=== PATIENT | female | born 1995 | race African-American/Black ===

== ENCOUNTER 2024-01-21 11:45 | Inpatient (IN) | payer BC ==
[2024-01-21 13:47] VITALS: BMI 20.7
[2024-01-21] MEDS ORDERED: POLYETHYLENE GLYCOL (HEALTHYLAX) 3350 17 GM PACKET PO PRN (14:48)
[2024-01-21] MEDS ORDERED: guaiFENesin 600 MG TABLET.ER (FP) PO PRN (14:48)
[2024-01-21] MEDS ORDERED: MAGNESIUM HYDROX 2400MG/30ML ORAL SUSPENSION 30 ML CUP PO PRN (14:48)
[2024-01-21] MEDS ORDERED: LOPERAMIDE HCL 2 MG CAPSULE PO PRN (14:48)
[2024-01-21] MEDS ORDERED: NALOXONE HCL 0.4 MG/ML VIAL IM PRN (14:48)
[2024-01-21] MEDS ORDERED: NALOXONE HCL (KLOXXADO) 8 MG SPRAY NS PRN (14:48)
[2024-01-21] MEDS ORDERED: BENZONATATE 200 MG CAPSULE PO PRN (14:48)
[2024-01-21] MEDS: hydrOXYzine PAMOATE 25 MG CAPSULE (FP) PO PRN (16:06)
[2024-01-21] MEDS ORDERED: hydrOXYzine PAMOATE 25 MG CAPSULE (FP) PO ONE (16:09)
[2024-01-21] MEDS: TUBERCULIN PPD 5 TU/0.1ML SYRINGE (IN PATIENT USE ONLY) ID ONE (20:00)
[2024-01-21] MEDS: MELATONIN 5 MG TABLETS PO SCH (22:47)
[2024-01-21] MEDS: THIAMINE HCL 100 MG TABLET (FP) PO SCH (22:47)
[2024-01-22] MEDS: PRENATAL VITAMINS W/ FOLIC ACID TABLET (FP) PO SCH (10:13)
[2024-01-22 12:51] LABS: HEMATOCRIT 36.3 % (32.4-45.2); HEMOGLOBIN 11.8 GM/dL (10.7-15.3); MCH 29.2 pg (25.7-33.7); MCHC 32.6 g/dl (32.0-36.0); MEAN CELL VOLUME 89.7 fl (80-96); MEAN PLT VOLUME 9.3 fl (7.5-11.1); PLATELET COUNT 188 10^3/uL (134-434); RBC 4.05 M/mm3 (3.60-5.2); RDW 13.4 % (11.6-15.6); WHITE BLOOD COUNT 4.1 K/mm3 (4.0-10.0)
[2024-01-22 13:03] LABS: POTASSIUM 4.3 mmol/L (3.5-5.1)
[2024-01-22 13:11] LABS: CALCIUM 8.7 mg/dL (8.5-10.1)
[2024-01-22 13:12] LABS: ALBUMIN 3.1 g/dl (3.4-5.0); BLOOD UREA NITROGEN 15.4 mg/dL (7-18)
[2024-01-22 13:15] LABS: CREATININE 0.6 mg/dL (0.55-1.3)
[2024-01-22 13:16] LABS: BILIRUBIN,TOTAL 0.4 mg/dL (0.2-1); TOT PROT 6.2 g/dl (6.4-8.2)
[2024-01-22 13:30] LABS: SYPHILIS W/ RPR CONF NON-REACTIVE (NONREACTIVE)
[2024-01-22] MEDS: NICOTINE POLACRILEX 2 MG LOZENGE BC PRN (13:59)
[2024-01-22] MEDS: NALTREXONE HCL 50 MG TABLET PO SCH (17:36)
[2024-01-22] MEDS: BENZTROPINE MESYLATE 1 MG TABLET PO SCH (17:36)
[2024-01-22] MEDS: NICOTINE POLACRILEX 4 MG GUM BUC PRN (17:39)
[2024-01-23] MEDS: NICOTINE POLACRILEX 4 MG LOZENGE BC PRN (14:54)
[2024-01-23] MEDS: IBUPROFEN 600 MG TABLET (FP) PO PRN (21:18)
[2024-01-24] MEDS: ACETAMINOPHEN 325 MG TABLET (FP) PO PRN (17:13)
[2024-01-24] MEDS: IBUPROFEN 400 MG TABLET (FP) PO PRN (21:10)
[2024-01-24 22:03] LABS: EPI CELLS 0 /uL (0-25.1); HYALINE CASTS 0 /uL (0-3.1); PH,URINE 5.5 (5.0-8.0); URINE APPEARANCE CLEAR; URINE BACTERIA 6 /uL (0-1359); URINE BILIRUBIN NEGATIVE (NEGATIVE); URINE COLOR YELLOW; URINE GLUCOSE (UA) NEGATIVE (NEGATIVE); URINE KETONE NEGATIVE (NEGATIVE); URINE LEUK ESTERASE NEGATIVE (NEGATIVE); URINE NITRITE NEGATIVE (NEGATIVE); URINE PROTEIN NEGATIVE (NEGATIVE); URINE RBC 642 /uL (0-23.9); URINE UROBILINOGEN 0.2 mg/dL (0.2-1.0); URINE WBC 4 /uL (0-25.8)
[2024-01-25] MEDS: NICOTINE POLACRILEX 2 MG GUM BUC PRN (09:55)
[2024-01-26] MEDS: ALBUTEROL SO4 HFA INHALER IH PRN (09:54)
[2024-01-27] MEDS: PALIPERIDONE PALMITATE 156 MG/ML IM SCH (12:14)
[2024-01-28] MEDS: BENZOCAINE/MENTHOL (CHLORASEPTIC ) LOZENGE MM PRN (15:40)
[2024-01-30] MEDS: PALIPERIDONE PALMITATE 156 MG/ML IM ONE (10:19)
[2024-01-31] MEDS: SODIUM CHLORIDE NASAL SPRAY 44 ML BOTTLE NS PRN (09:37)
[2024-01-31] MEDS: MELATONIN 5 MG TABLETS PO SCH (21:08)
[2024-02-03] MEDS: MAG HYDROX/AL HYDROX/SIMETH 30 ML UNIT-DOSE CUP PO PRN (17:32)
[2024-02-07 07:13] VITALS: RESP 16
[2024-02-10 07:52] VITALS: BP 102/65; PULSE 84; TEMP 97.2
== END 2024-02-10 10:00 | disposition home or self-care (01) | DRG 772 ==
LOC: YASAS 11:45 → Y3NR 18:38 → Y5N 01-24 18:11
PROVIDERS: ADMIT Allergy & Immunology; ATTEND Psychiatry & Neurology Pain Medicine
PROC: HZ42ZZZ Group Counseling for Substance Abuse Treatment, Cognitive-Behavioral (ICD-10-PCS; principal; 2024-01-21)
DX: F10.20 Alcohol dependence, uncomplicated (principal); F12.20 Cannabis dependence, uncomplicated; F25.9 Schizoaffective disorder, unspecified; J45.909 Unspecified asthma, uncomplicated; Z86.59 Personal history of other mental and behavioral disorders; Z86.69 Personal history of other diseases of the nervous system and sense organs; Z87.891 Personal history of nicotine dependence; Z56.0 Unemployment, unspecified
CPT/HCPCS: 36415; 80053; 80305; 81003; 81025; 85027; 86780; 86803; 87635; 93005; 93010; J2426